=== PATIENT | male | born 1960 | race Caucasian/White ===

== ENCOUNTER 2021-05-28 00:18 | Emergency (ER) | payer OTHER ==
[~2021-05-28] VITALS: Ht 165.1 cm; Wt 72.7 kg
[2021-05-28 00:30] VITALS: BP 132/78
[2021-05-28 01:46] LABS: APTT 27 SECONDS (22-32)
[2021-05-28 01:48] LABS: BASOPHILS % (AUTO) 0.1 % (0-1); EOSINOPHILS # (AUTO) 0.1 X10'3 (0-0.9); EOSINOPHILS % (AUTO) 0.6 % (0-6); HEMATOCRIT 37.8 % (42.0-52.0); HEMOGLOBIN 13.4 g/dl (14.0-17.9); LYMPHOCYTES # (AUTO) 1.5 X10'3 (1.1-4.8); LYMPHOCYTES % (AUTO) 15.6 % (21-51); MEAN CORPUSCULAR HEMOGLOBIN 32.4 PG (27.0-31.0); MEAN CORPUSCULAR HGB CONC 35.5 g/dL (33.0-36.5); MEAN CORPUSCULAR VOLUME 91.3 FL (78-98); MEAN PLATELET VOLUME 7.4 FL (7.4-10.4); MONOCYTES # (AUTO) 0.6 X10'3 (0-0.9); MONOCYTES % (AUTO) 6.7 % (2-12); NEUTROPHILS # (AUTO) 7.2 X10'3 (1.8-7.7); PLATELET COUNT 207 X10'3 (140-440); RED BLOOD COUNT 4.14 X10'6 (4.70-6.10); RED CELL DISTRIBUTION WIDTH 13.6 % (11.5-14.5); WHITE BLOOD COUNT 9.4 X10'3 (4.5-11.0)
[2021-05-28] MEDS ORDERED: morphine 4 MG/ML inj SYRINge IV ONE ×2 (02:05→03:25)
[2021-05-28 02:21] LABS: ALBUMIN 4.1 G/DL (3.4-5.0); ANION GAP 16 (8-16); BLOOD UREA NITROGEN 12 MG/DL (7-18); BUN/CREATININE RATIO 12.6 (5.4-32.0); CHLORIDE 89 MMOL/L (99-107); CREATININE 0.95 MG/DL (0.60-1.10); ETHANOL 0.292 GM/DL (0.0-0.010); GLUCOSE 153 MG/DL (70-104); POTASSIUM 3.7 MMOL/L (3.5-5.1); SODIUM 127 MMOL/L (135-145); TOTAL CARBON DIOXIDE 21.7 MMOL/L (24-32); eGFR 81 ML/MIN
[2021-05-28] MEDS ORDERED: amox tr/potassium clavulanate 875/125mg TAB PO ONE (03:15)
[2021-05-28] MEDS ORDERED: normal saline 1000ml 1,000 ML IV ONE (03:25)
[2021-05-28] MEDS ORDERED: ondansetron/PF 4mg/2ml inj IV ONE (04:10)
== END 2021-05-28 04:20 | disposition short-term general hospital (02) ==
LOC: ER 00:19
DX: S02.85XA Fracture of orbit, unspecified, initial encounter for closed fracture (principal); S09.8XXA Other specified injuries of head, initial encounter; E11.9 Type 2 diabetes mellitus without complications; I10 Essential (primary) hypertension; F41.9 Anxiety disorder, unspecified; Z20.822 Contact with and (suspected) exposure to COVID-19; W19.XXXA Unspecified fall, initial encounter; Y93.89 Activity, other specified; Y92.89 Other specified places as the place of occurrence of the external cause; Y99.8 Other external cause status
CPT/HCPCS: 36415; 70450; 70486; 71045; 72125; 80048; 80320; 85025; 85610; 85730; 87635; 93005; 96361; 96374; 96375; 96376; 99285; C9803; J2270; J2405; J7030